=== PATIENT | female | born 1990 | race African-American/Black ===

== ENCOUNTER → 2018-06-14 12:42 | Outpatient (CLI) | payer OTHER, SELFPAY ==
--- NOTE | 2018-06-14 | DI.MRI.S_ITS ---
PROCEDURE: MR WRIST RT WO CON INDICATIONS: PAIN IN RIGHT WRIST TECHNIQUE: Noncontrast coronal proton density fast spin echo and T2 fast spin echo with fat saturation; coronal 3-D gradient echo, axial T1 spin echo and T2 fast spin echo with fat saturation, sagittal T1 spin echo through the wrist. COMPARISON: None. FINDINGS: Image quality: Excellent. Bones and cartilage: The carpal bones are normally aligned. No bone marrow contusions or fractures. No evidence for avascular necrosis. Overlying cartilage surfaces appear normal. Carpal ligaments: The scapholunate and lunotriquetral ligaments appear intact. In the absence of intra-articular contrast, the extrinsic carpal ligaments are not well identified. On sagittal images, the pisohamate ligament appears intact. Triangular fibrocartilage complex: The triangular fibrocartilage appears intact. The adjacent meniscal homolog appears normal in the absence of intra-articular contrast. The extensor carpi ulnaris tendon is normal in location and morphology. Tendons and soft tissues: The carpal tunnel structures appear normal, including the median nerve. The ulnar nerve appears normal within Guyon's canal. There is minimal fluid adjacent to the extensor carpi radialis longus and brevis tendons. No soft tissue ganglion cysts. IMPRESSION: Minimal fluid adjacent to the extensor carpi radialis longus and brevis tendons raising the possibility of low-grade tenosynovitis although recommend clinical correlation since this finding is quite subtle. Elsewhere, no internal derangement. Dictated by: Brock Hernandez M.D. on 06/14/2018 at 12:59 Approved by: Brock Hernandez M.D. on 06/14/2018 at 13:11
== END ==
PROVIDERS: PCP Family Medicine; Visit Provider Family Medicine
DX: M25.531 Pain in right wrist (principal)
CPT/HCPCS: 73221

== ENCOUNTER 2018-09-02 11:49 | Day surgery (SDC) | payer OTHER, SELFPAY ==
--- NOTE | 2018-09-02 | PATH_ITS ---
[facility] Accession Number: [id number] . 01 Material submitted: . PRODUCTS OF CONCEPTION . 02 Diagnosis: Products of Conception: Products of conception identified. Fetus present (foot length of 0.7 cm, most consistent with 11 weeks gestational age). MRV/09/06/2018 . 02 Electronically signed: . Naina Cuellar MD, Pathologist NPI- [id number] . 01 Gross description: . Received in formalin, labeled products of conception, remainder sent for chromosomal study, are multiple fragments of pearson and red-brown spongy partially membranous tissue (11.0 x 7.2 x 2.0 cm) and a phenotypically male developing fetus (4 grams, 8.5 x 1.5 x 1.0 cm) with a hand length of 0.7 cm and a foot length of 0.7 cm. No obvious pathological abnormalities are identified. [employer] tissue is submitted in cassettes A1-A4. . Note: Per the requisition, this is a split sample with tissue sent in BSS to cytogenetics for chromosomal study. ([id number]) /[facility] . 02 Pathologist provided ICD-10: O02.1 . 02 CPT . 143076 Performed at: 01 [facility] [address], [place], [place] [id number] MD Billy Bustamante MD Phone: [phone] Performed at: 02 [facility] [address] [place], [place] [id number] MD Salazar Escamilla MD Phone: [phone]
[2018-09-02 12:25] VITALS: BP 104/61; PULSE 76; RESP 15; TEMP 36.2; O2SAT 99; BMI 29.8
[2018-09-02] MEDS: LACTATED RINGERS 1,000 ML 42 ML IV (12:44)
--- NOTE | 2018-09-02 13:27 | PM.PREOP ---
Pre-operative Note Interval Note Pre-op Check: Yes History & Physical Reviewed by Physician Changes: No
--- NOTE | 2018-09-02 14:51 | SUR.OPER ---
Lithotomy on padded OR bed, head on pillow, arms secured on padded arm boards at <90 degrees abduction. Legs secured in padded yellow fins stirrups.
[2018-09-02] MEDS: CEFAZOLIN 2 GM/100 ML FROZ.PIGGY IV (15:25)
[2018-09-02] MEDS: BUPIVACAINE 0.25% W/ EPI VIAL 50 ML INJ (15:38)
[2018-09-02] MEDS: SILVER NITRATE STICK 1 EACH TOP (15:56)
[2018-09-02 15:59] VITALS: BP 118/73; PULSE 124; RESP 20; TEMP 36.6; O2SAT 97
[2018-09-02 16:04] VITALS: BP 120/76; PULSE 101; RESP 16; TEMP 36.6; O2SAT 96
--- NOTE | 2018-09-02 16:12 | PM.GYNOP.1 ---
Operative Date/Time/Diagnoses Date of procedure: 09/02/18 Time of procedure: 15:30 Pre-op diagnosis: Missed at 12+3 wks Post-op diagnosis: same Procedure: Procedures Operation Date: 09/02/18 13:15 Actual Procedures Side Surgeon p Dilation & Evacuation Suzy Sims MD Indications: The patient is a 28-year-old 5 para 2 abortus 2 female at 16 weeks by last menstrual period, diagnosed with a loss at her obstetric visit 2 days ago. The fetus was noted to measure 12+3 weeks with no cardiac activity or movement. loss was confirmed with a formal ultrasound. Her had otherwise been normal. She started having some cramping 2 days ago but has otherwise had no bleeding. She has had some chills but no fevers. Given the gestational age of the loss and risk of bleeding and pain associated with expectant or medical management, it was recommended that she consider surgical management in the form of a dilation and evacuation. She was in agreement with this plan. Risks, benefits, limitations, alternatives, and expectations of surgery were discussed, and consent was reviewed and signed prior to the date of surgery. Surgeon: Suzy Sims Anesthesia Type: General and Local (0.25% marcaine with eipi - 12 ml) Operative Notes Findings: Exam under anesthesia: The uterus is anteverted and approximately 13 weeks in size. No adnexal masses were palpable. Operative findings: A large amount of products of conception was obtained, including parts. All parts were accounted for as well as the placenta and gestational sac. Closure Type: not applicable Specimen(s): other (Products of conception sent for pathology and chromosome analysis) Estimated blood loss (mL): 650 Blood products transfused: none Procedure in detail: The patient was taken to the operating room where general anesthesia with LMA was administered without difficulty. She was then placed in the high dorsal lithotomy position with her lower extremities in Yellofin stirrups. Exam under anesthesia was then performed with the findings as noted above. Perineum and vagina were then prepped and draped in a sterile fashion, and in-and-out catheterization was performed. Procedure Time-Out was performed. A sterile bivalve speculum was then placed. The anterior lip of the cervix was then grasped with a single-toothed tenaculum. Local anesthetic using 0.25% Marcaine with epinephrine was then injected at the 2:00, 4:00, 7:00, and 10:00 positions for a paracervical block. The cervix was then serially dilated until an 12 mm curved rigid suction curette could be gently advanced to the uterine fundus. Suction curettage was then performed until it was felt that the majority of the tissue was removed. Gestational sac tissue was visualized at the os, grasped and removed with moderate traction. Gentle sharp curettage was then performed and good crie was noted on all 4 maria of the uterus. The suction curette was then reintroduced to ensure no residual products of conception. The tenaculum was then removed, and the tenaculum sites hemostatic after application of silver nitrate. At this point, the procedure was deemed complete. Sponge, lap, and needle count were correct x3. There were no complications. The patient was then taken to the recovery room in stable condition. Complications: none Post-operative Condition: stable Disposition: same day surgery Plan for aftercare: PACU recovery followed by discharge to home. See handout for discharge precautions and instructions.
[2018-09-02 16:14] VITALS: BP 109/77; PULSE 93; RESP 20; TEMP 36.7; O2SAT 95
[2018-09-02 16:30] VITALS: BP 104/68; PULSE 90; RESP 16; TEMP 36.6; O2SAT 97
== END 2018-09-02 16:31 ==
PROVIDERS: PCP Family Medicine; Visit Provider Obstetrics & Gynecology
PROC: (CPT 58120; principal; 2018-09-02 13:15)
DX: O02.1 Missed abortion (principal); Z3A.12 12 weeks gestation of pregnancy
CPT/HCPCS: 59820; 88305; J0690; J1100; J1885; J2250; J2405; J2704; J3010